=== PATIENT | male | born 1950 | race Caucasian/White ===

== ENCOUNTER 2018-02-24 21:43 | Emergency (ER) | payer OTHER ==
[~2018-02-24] VITALS: Ht 182.9 cm; Wt 127.5 kg
[2018-02-24 22:11] VITALS: BP 144/92; Ht 182.9 cm; Wt 127.5 kg
== END 2018-02-24 23:37 | disposition left against medical advice (07) ==
LOC: ED 21:43
DX: Z53.21 Procedure and treatment not carried out due to patient leaving prior to being seen by health care provider (principal)